=== PATIENT | male | born 1995 | race Hispanic/Latino ===

== ENCOUNTER 2020-11-29 10:40 | Emergency (ER) | payer OTHER ==
[~2020-11-29] VITALS: Ht 175.3 cm; Wt 79.4 kg
[2020-11-29] MEDS ORDERED: BUDE10.26 IH (11:49)
[2020-11-29] MEDS ORDERED: ALBUHFA IH (11:49)
[2020-11-29 12:15] VITALS: BP 115/65
== END 2020-11-29 12:20 | disposition home or self-care (01) ==
LOC: EEVIPCON 10:40 → EDH 10:40
DX: U07.1 COVID-19 (principal); J06.9 Acute upper respiratory infection, unspecified
CPT/HCPCS: 87635; 87804 ×2; 87880; 99283; C9803